=== PATIENT | male | born 1995 | race Caucasian/White ===

== ENCOUNTER 2017-04-19 02:14 | Emergency (ER) | payer OTHER ==
[2017-04-19] MEDS ORDERED: Ibuprofen 800 MG TAB ONE (02:28)
[2017-04-19] MEDS ORDERED: Ketorolac Tromethamine 60 MG/2 ML VIAL ONE (03:23)
--- NOTE | 2017-04-19 08:16 | RAD ---
TWO VIEWS RIGHT ELBOW: Date: 04-19-17 History: Right elbow pain after falling off skateboard around 2100 hours last night. Pain has worsen ed overnight. FINDINGS: The lateral view is rotated which limits adequate evaluation for joint effusion. However, there does appear to be a small joint effusion. No obvious fracture is seen, but given the presence of a joint effusions suggests possibility of a fracture. There is no dislocation or other osseous abnormality. IMPRESSION: No obvious fracture is seen involving the right elbow, but there is evidence of a joint effusion whi ch suggests the possibility of a fracture. As a result, follow up imaging right elbow is recommended in 7 days after conservative management. POS: [facility]
== END 2017-04-19 03:50 | disposition home or self-care (01) ==
LOC: ERS 02:14
DX: M25.521 Pain in right elbow (principal); V00.131A Fall from skateboard, initial encounter; Y93.51 Activity, roller skating (inline) and skateboarding
CPT/HCPCS: 29105; 96372; J1885